=== PATIENT | male | born 1980 | race Caucasian/White ===

== ENCOUNTER 2016-12-11 21:11 | Emergency (ER) | payer MEDICAID ==
[~2016-12-11 21:11] MED LIST: NO MEDS PER PT
[2016-12-11] MEDS ORDERED: IBUPROFEN800 M1 PO (21:24)
[2016-12-11] MEDS ORDERED: MEDROL4 M2 PO (22:03)
== END 2016-12-11 22:21 ==
LOC: EDMED 21:11
DX: M54.42 Lumbago with sciatica, left side (principal); M54.41 Lumbago with sciatica, right side; G89.29 Other chronic pain